=== PATIENT | male | born 1955 | race Caucasian/White ===

== ENCOUNTER 2023-06-20 21:57 | Inpatient (IN) ==
[2023-06-20] MEDS ORDERED: Albuterol HFA INHALER 8 gm MDI INH PRN (22:33)
[2023-06-20 23:03] LABS: ABS Lymphocytes 0.5 10^3/uL (1.0-4.8); ABS Monocytes 0.7 10^3/uL (0.0-1.1); ABS Neutrophils 5.6 10^3/uL (1.5-7.6); ABS Nucleated RBC 0.05 10^3/ul; Hematocrit 31.5 % (38-53); Hemoglobin 10.4 g/dL (13.2-16.3); Lymphocyte % 7.3 %; Mean Corpuscular Hemoglobin 30.5 pg (27-33); Mean Corpuscular Hgb Conc 33.2 g/dL (31-36); Mean Corpuscular Volume 91.8 fL (80-97); Nucleated Red Blood Cells % 0.8 %/100WBC (0.0-0.8); Platelet Count 157 10^3/uL (150-450); Red Blood Count 3.43 10^6/uL (4.06-5.63); Red Cell Distribution Width 16.2 % (12-17); White Blood Count 6.8 10^3/uL (3.6-10.2)
[2023-06-20 23:18] LABS: Creatinine, Serum 3.25 mg/dL (0.67-1.17); Globulin 3.1 g/dL (2-4); Potassium 5.7 mmol/L (3.5-5.0); Total Bilirubin 0.3 mg/dL (0.2-1.0); Total Protein 6.1 g/dL (6.4-8.9); eGFR CKD-EPI 19.8 (>60)
[2023-06-20] MEDS: Insulin GLARGINE 100 un/ml 10 ml VIAL SUBCUT SCH (23:51)
[2023-06-21] MEDS ORDERED: SODIUM ZIRCONIUM CYCLOSILICATE 10 GM PACKET PO ONE (00:21)
[2023-06-21] MEDS ORDERED: Dextrose 50% Syringe 50 ml 25 GM/50 ML SYRINGE IV PUSH PRN (00:30)
[2023-06-21 04:57] LABS: Calcium 7.9 mg/dL (8.6-10.3); Creatinine, Serum 3.06 mg/dL (0.67-1.17); Potassium 5.4 mmol/L (3.5-5.0); eGFR CKD-EPI 21.3 (>60)
[2023-06-21] MEDS: Heparin 5000 UNITS/ML 1 mL VIAL SUBCUT SCH ×3 (05:51→22:12)
[2023-06-21] MEDS: Aspirin EC 81 mg TAB.EC (enteric coated) PO SCH (07:54)
[2023-06-21] MEDS: Isosorbide Mononit ER 60mg TAB PO SCH (07:54)
[2023-06-21 16:22] LABS: Venous Bicarbonate HCO3 22.2 mmol/L (24-28)
[2023-06-21] MEDS: Insulin GLARGINE 100 un/ml 10 ml VIAL SUBCUT SCH (22:11)
[2023-06-22 04:59] LABS: Creatinine, Serum 2.94 mg/dL (0.67-1.17); Magnesium 2.3 mg/dL (1.9-2.7); Phosphorus 4.5 mg/dL (2.5-5.0); Potassium 5.3 mmol/L (3.5-5.0); eGFR CKD-EPI 22.3 (>60)
[2023-06-22] MEDS: Heparin 5000 UNITS/ML 1 mL VIAL SUBCUT SCH ×3 (05:43→20:57)
[2023-06-22] MEDS: Isosorbide Mononit ER 60mg TAB PO SCH (08:09)
[2023-06-22] MEDS: Aspirin EC 81 mg TAB.EC (enteric coated) PO SCH (08:09)
[2023-06-22] MEDS: Insulin GLARGINE 100 un/ml 10 ml VIAL SUBCUT SCH (20:57)
[2023-06-23] MEDS: Heparin 5000 UNITS/ML 1 mL VIAL SUBCUT SCH ×3 (04:42→20:58)
[2023-06-23 05:22] LABS: Anion Gap 3 mmol/L (2-16); Blood Urea Nitrogen 79 mg/dL (6-24); CO2 Carbon Dioxide 25 mmol/L (22-32); Calcium 7.9 mg/dL (8.6-10.3); Chloride 111 mmol/L (101-111); Glucose 126 mg/dL (70-100); Sodium 139 mmol/L (135-145); eGFR CKD-EPI 25.9 (>60)
[2023-06-23] MEDS: Isosorbide Mononit ER 60mg TAB PO SCH (08:36)
[2023-06-23] MEDS: Aspirin EC 81 mg TAB.EC (enteric coated) PO SCH (08:36)
[2023-06-23] MEDS ORDERED: Dextrose 50% Syringe 50 ml 25 GM/50 ML SYRINGE IV PUSH PRN (10:28)
[2023-06-23 11:52] LABS: Potassium, Whole Blood 5.6 mmol/L (3.4-4.5)
[2023-06-23] MEDS ORDERED: Insulin GLARGINE 100 un/ml 10 ml VIAL SUBCUT SCH (21:00)
[2023-06-24 04:34] LABS: Calcium 7.9 mg/dL (8.6-10.3); Creatinine, Serum 2.6 mg/dL (0.67-1.17); eGFR CKD-EPI 25.9 (>60)
[2023-06-24] MEDS: Heparin 5000 UNITS/ML 1 mL VIAL SUBCUT SCH (06:57)
[2023-06-24] MEDS: Aspirin EC 81 mg TAB.EC (enteric coated) PO SCH (08:57)
[2023-06-24] MEDS: Isosorbide Mononit ER 60mg TAB PO SCH (08:58)
[2023-06-24 13:09] VITALS: BP 168/60
== END 2023-06-24 13:19 | disposition home or self-care (01) | DRG 193 ==
LOC: ICU 21:57 → INTOOBSV 22:22
PROVIDERS: ADMIT Student in an Organized Health Care Education/Training Program; ATTEND Student in an Organized Health Care Education/Training Program